=== PATIENT | male | born 1995 | race Caucasian/White ===

== ENCOUNTER 2023-03-11 19:14 | Emergency (ER) | payer BC ==
[2023-03-11] MEDS: Lidocaine 2% with EPINEPHrine 1:100,000 20 ML MDV INJECT ONE (20:05)
[2023-03-11] MEDS: Bacitracin Oint 1 GM U/D Packet ONE (20:13)
[2023-03-11] MEDS: Diphtheria,Pertussis(Acell),Tetanus Vaccine 0.5 ML Syringe IM ONE (20:26)
== END 2023-03-11 21:00 | disposition home or self-care (01) ==
LOC: LL.ED 19:14
DX: S41.112A Laceration without foreign body of left upper arm, initial encounter (principal); W23.0XXA Caught, crushed, jammed, or pinched between moving objects, initial encounter
CPT/HCPCS: 12004; 90471; 90715; 99282-25; 99283; J3490